=== PATIENT | male | born 1970 ===

== ENCOUNTER 2017-09-30 16:59 | Emergency (ER) | payer OTHER ==
[2017-09-30 17:26] VITALS: BP 135/79; PULSE 77; RESP 19; TEMP 98.5; O2SAT 100
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
--- NOTE | 2017-09-30 18:42 | RAD ---
PROCEDURE: Cervical Spine Radiographs. HISTORY: Pain. COMPARISON: None. FINDINGS: BONES: There is normal alignment of the cervical vertebral bodies. There is normal cervical lordosis. Vertebral height is normal. Bone mineralization is normal. There is no acute fracture or traumatic anterior listhesis. The craniocervical junction is normal. The atlantoaxial joint normal. DISC SPACES: There is mild degenerative disc disease at C5-6 with mild anterior spurring, reduced disc height and facet arthropathy. The remaining disc heights are maintained SOFT TISSUES: Normal. No prevertebral soft tissue swelling. OTHER FINDINGS: None. IMPRESSION: No acute fracture or traumatic anterolisthesis. Mild degenerative disc disease at C5-6.
== END 2017-09-30 19:08 | disposition home or self-care (01) ==
LOC: H.ER 16:59
DX: M54.2 Cervicalgia (principal)